=== PATIENT | female | born 1995 | race Caucasian/White ===

== ENCOUNTER 2021-04-09 14:36 | Emergency (ER) | payer OTHER, SELFPAY ==
[2021-04-09 14:45] VITALS: BP 118/77; PULSE 85; RESP 18; TEMP 36.4; O2SAT 100
--- NOTE | 2021-04-09 15:06 | ED.EAR ---
HPI - Ear Problem General Chief complaint: Ear Stated complaint: Ear Pain Time Seen by Provider: 04/09/21 15:12 Source: patient Mode of arrival: ambulatory Limitations: no limitations History of Present Illness HPI Narrative: Jeannine Robertson is a 25 yo female with no PMH who to [facility] for complaints of right ear pain that started almost 2 weeks ago that includes stiffness in her sinuses most developed into bilateral ear discomfort she states that she has had symptoms that have fluctuated but no fever. Related Data Home Medications Medication Instructions Recorded Confirmed PNV cmb#95-ferrous fumarate-FA 1 tablet PO DAILY 07/13/19 07/13/19 [] Allergies Allergy/AdvReac Type Severity Reaction Status Date / Time No Known Allergies Allergy Verified 07/13/19 12:35 Review of Systems Review of Systems: CONSTITUTIONAL: Denies fever, chills, sweats. EYES: Denies visual changes, redness, discharge. ENT: Denies rhinorrhea, has congestion, sore throat, bilateral otalgia. CARDIOVASCULAR: Denies chest pain, palpitations, edema. RESPIRATORY: Denies dyspnea, wheezing, cough GASTROINTESTINAL: Denies abdominal pain, nausea, vomiting, diarrhea. GENITOURINARY: Denies dysuria, hematuria, abnormal discharge SKIN: Denies rash or itching. NEUROLOGIC: Denies numbness, or focal weakness. PSYCHIATRIC: Denies anxiety or depression. PMFSH Past Medical History Medical History Chlamydia Gestational diabetes History of cyst of brain Migraines Smoker Family History Family History Grandparent Diabetes mellitus Hypertension Mother Hypertension Father Diabetes mellitus Son gastroschisis Social History Social History Smoking packs per day: 0.5 Smoking cigarettes per day: 10.0 Years smoked: 8 Smoking pack-years: 4.00 Smoking status: Current every day smoker Tobacco type: cigarettes Second hand tobacco smoke exposure: Yes Substance use: never Spiritual care concerns: No Comments At time of signature, I agree with nursing past medical, surgical, social and family history. There is no relevant family history pertinent to the presenting complaint. Exam Narrative: GENERAL: This is a well-nourished, well-developed patient, in mild distress. HEAD: normocephalic, atraumatic. EYES:. Sclera clear/white. Vision is grossly intact. EARS: External ears normal, auditory canals erythematous and without drainage, TMs normal without perforation. Hearing grossly intact. NOSE: External nose normal without nasal discharge, nares with redness, has rhinorrhea. THROAT: Mucous membranes moist, posterior pharynx mild erythema NECK: Neck supple, non-tender CARDIOVASCULAR: Regular rate and rhythm without murmurs, gallops, or rubs. RESPIRATORY: Clear to auscultation. Breath sounds equal bilaterally. No wheezes, rales, or rhonchi. GASTROINTESTINAL: Abdomen soft, non-tender, SKIN: warm, intact with no suspicious lesions or rash, good texture and turgor. NEURO: awake, alert, and oriented to person, place and time. There were no obvious focal neurologic abnormalities. Steady gait EXTREMITIES: Normal range of motion. BACK: Nontender without deformity Course Course Emergency Course: Patient here with sinuses draining and bilateral ear pain Started on prednisone, polymyxin eardrops, Zyrtec Vital Signs Vital signs: Vital Signs Temperature 97.6 F 04/09/21 14:45 Pulse Rate 85 04/09/21 14:45 Respiratory Rate 18 04/09/21 14:45 Blood Pressure 118/77 04/09/21 14:45 Pulse Oximetry 100 04/09/21 14:45 Temperature 97.6 F 04/09/21 14:45 Pulse Rate 85 04/09/21 14:45 Respiratory Rate 18 04/09/21 14:45 Blood Pressure 118/77 04/09/21 14:45 Pulse Oximetry 100 04/09/21 14:45 Medical Decision Making Differential Diagnosis Differential Diagnosis: Otitis media
== END 2021-04-09 15:30 | disposition home or self-care (01) ==
PROVIDERS: Emergency Provider Nurse Practitioner
DX: H66.003 Acute suppurative otitis media without spontaneous rupture of ear drum, bilateral (principal); F17.210 Nicotine dependence, cigarettes, uncomplicated
CPT/HCPCS: 99213; G0463

== ENCOUNTER 2021-04-12 09:01 | Emergency (ER) | payer OTHER, SELFPAY ==
[2021-04-12 09:17] VITALS: BP 123/70; PULSE 80; RESP 16; TEMP 36.5; O2SAT 99
--- NOTE | 2021-04-12 09:58 | ED.EAR ---
HPI - Ear Problem General Chief complaint: Ear Stated complaint: ear pain/sinus infection Time Seen by Provider: 04/12/21 09:50 Source: patient and RN notes reviewed Mode of arrival: ambulatory Limitations: no limitations History of Present Illness HPI Narrative: Patient presents today complaining of bilateral ear pain with decreased hearing. She was seen at [facility] on 04/09/2021, diagnosed with otitis media, and given a prescription for eardrops. States that her ears are now worse and that last night her right ear pain has significantly worsened. She took some Tylenol this morning which provided little relief. Her sinus congestion has not changed since her visit. She has continued to take the prescribed prednisone as well. MD Complaint: ear pain and decreased hearing Related Data Home Medications Medication Instructions Recorded Confirmed PNV cmb#95-ferrous fumarate-FA 1 tablet PO DAILY 07/13/19 07/13/19 [] Allergies Allergy/AdvReac Type Severity Reaction Status Date / Time No Known Allergies Allergy Verified 07/13/19 12:35 Review of Systems Review of Systems: CONSTITUTIONAL: Denies body aches, fever, chills, or sweats. EYES: Denies visual changes, redness, or discharge. ENT: Denies rhinorrhea, sore throat. + Ear pain, nasal congestion, sinus pressure, decreased hearing CARDIOVASCULAR: Denies chest pain, palpitations, or edema. RESPIRATORY: Denies cough or dyspnea. GASTROINTESTINAL: Denies abdominal pain, nausea, vomiting, or diarrhea. GENITOURINARY: Denies dysuria or hematuria. SKIN: Denies rash, itching, or wounds. MUSCULOSKELETAL: Denies back pain, joint pain, or myalgia. NEUROLOGIC: Denies headache, numbness, tingling, or weakness. PSYCH: Denies depression or anxiety. [facility] Past Medical History Medical History Chlamydia Gestational diabetes History of cyst of brain Migraines Smoker Family History Family History Grandparent Diabetes mellitus Hypertension Mother Hypertension Father Diabetes mellitus Son gastroschisis Social History Social History Smoking packs per day: 0.5 Smoking cigarettes per day: 10.0 Years smoked: 8 Smoking pack-years: 4.00 Smoking status: Current every day smoker Tobacco type: cigarettes Second hand tobacco smoke exposure: Yes Substance use: never Spiritual care concerns: No Comments At time of signature, I have reviewed and agree with nursing past medical, surgical, social and family history unless otherwise noted. Please see nursing chart for further information. There is no relevant family history pertinent to the presenting complaint Exam Narrative: GENERAL: Well-appearing, well-nourished, and in no acute distress. HEAD: Normocephalic, atraumatic. EYES: EOMI. No redness or drainage. Conjunctivae normal. ENT: Mucous membranes pink and moist. Nares moderately congested. No rhinorrhea. Bilateral TMs are erythematous and very dull. No ruptures noted. Throat normal. Uvula midline. NECK: Normal AROM. Supple. No lymphadenopathy. CHEST: No respiratory distress. Clear to auscultation. HEART: Regular rate and rhythm. No murmur appreciated. Normal peripheral pulses. EXTREMITIES: Normal range of motion. No edema. SKIN: Warm, dry, no rash. Capillary refill normal. Normal skin turgor. NEURO: No focal deficits. Alert and oriented x3. Gait steady. PSYCH: Normal affect. No signs of depression or anxiety. Course Vital Signs Vital signs: Vital Signs Temperature 97.7 F 04/12/21 09:17 Pulse Rate 80 04/12/21 09:17 Respiratory Rate 16 04/12/21 09:17 Blood Pressure 123/70 04/12/21 09:17 Pulse Oximetry 99 04/12/21 09:17 Temperature 97.7 F 04/12/21 09:17 Pulse Rate 80 04/12/21 09:17 Respiratory Rate 16 04/12/21 09:17 Blood Pressure 123/70 04/12/21 09:17 Pulse Oximetr
== END 2021-04-12 10:23 | disposition home or self-care (01) ==
PROVIDERS: Emergency Provider Nurse Practitioner
DX: H66.93 Otitis media, unspecified, bilateral (principal); J01.90 Acute sinusitis, unspecified; F17.219 Nicotine dependence, cigarettes, with unspecified nicotine-induced disorders
CPT/HCPCS: 99213; G0463

== ENCOUNTER 2021-06-19 09:59 | Emergency (ER) | payer OTHER, SELFPAY ==
[2021-06-19 10:11] VITALS: BP 129/96; PULSE 105; RESP 18; TEMP 37.3; O2SAT 100
--- NOTE | 2021-06-19 10:40 | ED.GENADULT ---
HPI - General Adult General Chief complaint: Upper Respiratory Infection Stated complaint: cough/sinus issues/fever/body aches Source: patient Mode of arrival: ambulatory Limitations: no limitations History of Present Illness HPI narrative: Patient is a 26-year-old female who presents to the [facility] via [facility] for evaluation flulike symptoms that began 4 days ago. Additionally, she reports lightheadedness, myalgias, vomiting, fever, nasal congestion, and wet cough. She states her cough is nonproductive. Maximum temperature was 101.0. She reports one episode of vomiting undigested food. Sudafed, Tylenol cold and flu, and nasal spray has provided moderate relief of symptoms. Denies aggravating factors. Patient was exposed to influenza a by her brother prompting today's visit. Patient denies being vaccinated against Covid or influenza. Related Data Allergies Allergy/AdvReac Type Severity Reaction Status Date / Time No Known Allergies Allergy Verified 06/19/21 10:26 Review of Systems Review of Systems: Pertinent negatives: sweats, chills, change in appetite, fatigue, skin color changes, headache, nasal discharge, LOC, near syncope, lymphadenopathy, sinus problems, ear pain/drainage, chest pain, heart murmurs, heart palpitations, sore throat, shortness of breath, wheezing, cyanosis, hemoptysis, hoarseness, orthopnea, pleuritic pain, abdominal pain, nausea, diarrhea. PMFSH Past Medical History Medical History Chlamydia Gestational diabetes History of cyst of brain Migraines Smoker Family History Family History Grandparent Diabetes mellitus Hypertension Mother Hypertension Father Diabetes mellitus Son gastroschisis Social History Social History Smoking packs per day: 0.5 Smoking cigarettes per day: 10.0 Years smoked: 8 Smoking pack-years: 4.00 Smoking status: Current every day smoker Tobacco type: cigarettes Second hand tobacco smoke exposure: Yes Substance use: never Spiritual care concerns: No Comments I have reviewed and agree with the patient's past medical, surgical, social, and family hx as documented by the RN. There is no relevant family history pertinent to the presenting complaint. Exam Narrative: GENERAL: Well-appearing, well-nourished, and in no acute distress. HEAD: Normocephalic, atraumatic. No sinus tenderness or facial swelling appreciated. EYES: PERRLA and EOMI. No evidence of erythema, swelling, or drainage. ENT: Bilateral external ears and ear canals normal. Bilateral TMs are normal.No TM perforation. Nares clear, no rhinorrhea or epistaxis. Bilateral turbinates without erythema/ swelling. Mucous membranes moist and pink. Uvula is midline without erythema and swelling. No evidence of petechial rash, cobblestoning, lesions, ulcers, erythema, swelling, exudates, peritonsillar abscess, tenting, or drooling. Breath odor and voice normal. NECK: Supple. No Lymphadenopathy or nuchal rigidity appreciated. CHEST: Bilateral lung miller are clear to auscultation. No respiratory distress. No evidence of cough or pleuritic cp upon examination. HEART: Tachycardia with a rate of 105. Regular rhythm. No murmur, gallop, or rub heard. EXTREMITIES: Normal range of motion. No edema. SKIN: Warm, dry, no rash. NEURO: No focal deficits. Alert and oriented x3. Course Course Emergency Course: The patient/guardian displays adequate decision making capability and despite a detailed discussion of alternatives, benefits, risks, and consequences refuses rapid strep test Vital Signs Vital signs: Vital Signs Temperature 99.2 F 06/19/21 10:11 Pulse Rate 105 H 06/19/21 10:11 Respiratory Rate 18 06/19/21 10:11 Blood Pressure 129/96 H 06/19/21 10:11 Pulse Oximetry 100 06/19/21 10:11 Temperature 99.2 F 06/19/21 10:11 Pulse Ra
== END 2021-06-19 11:07 | disposition home or self-care (01) ==
PROVIDERS: Emergency Provider Nurse Practitioner Family
DX: J06.9 Acute upper respiratory infection, unspecified (principal); Z20.822 Contact with and (suspected) exposure to COVID-19; F17.210 Nicotine dependence, cigarettes, uncomplicated
CPT/HCPCS: 87426; 87804; 99213; C9803; G0463

== ENCOUNTER 2021-06-24 15:35 | Emergency (ER) | payer OTHER, SELFPAY ==
[2021-06-24 15:43] VITALS: BP 141/76; PULSE 92; RESP 16; TEMP 36.3; O2SAT 99
--- NOTE | 2021-06-24 15:57 | ED.EAR ---
HPI - Ear Problem General Chief complaint: Ear Stated complaint: Ear pain. Time Seen by Provider: 06/24/21 15:50 Source: patient and RN notes reviewed Mode of arrival: ambulatory Limitations: no limitations History of Present Illness HPI Narrative: Jeannine is a 26-year-old female patient ambulated into the [facility]. Patient states she has decreased hearing and increased nasal congestion for the last 2 weeks. Patient was here seen here on 06/20/2021 was prescribed Sudafed, Flonase, and Benadryl. Patient states she has been taking it without any relief. Patient states the pain in her right ear is getting worse. Patient also states she has decreased taste and smell. Patient had negative Covid on Friday. Patient states she was using her son's moxifloxacin drops Related Data Allergies Allergy/AdvReac Type Severity Reaction Status Date / Time No Known Allergies Allergy Verified 06/19/21 10:26 Review of Systems Review of Systems: CONSTITUTIONAL: Denies body aches, fever, chills, or sweats. EYES: Denies visual changes, redness, or discharge. ENT: Denies rhinorrhea,+ congestion,denies sore throat, +otalgia. CARDIOVASCULAR: Denies chest pain, palpitations, or edema. RESPIRATORY: + cough denies dyspnea. GASTROINTESTINAL: Denies abdominal pain, nausea, vomiting, or diarrhea. GENITOURINARY: Denies dysuria or hematuria. SKIN: Denies rash, itching, or wounds. MUSCULOSKELETAL: Denies back pain, joint pain, or myalgia. NEUROLOGIC: Denies headache, numbness, tingling, or weakness. PSYCH: Denies depression or anxiety. All systems reviewed & are unremarkable except as noted in HPI and below PMFSH Past Medical History Medical History Chlamydia Gestational diabetes History of cyst of brain Migraines Smoker Family History Family History Grandparent Diabetes mellitus Hypertension Mother Hypertension Father Diabetes mellitus Son gastroschisis Social History Social History Smoking packs per day: 0.5 Smoking cigarettes per day: 10.0 Years smoked: 8 Smoking pack-years: 4.00 Smoking status: Current every day smoker Tobacco type: cigarettes Second hand tobacco smoke exposure: Yes Substance use: never Spiritual care concerns: No Comments At time of signature, I have reviewed and agree with nursing past medical, surgical, social and family history unless otherwise noted. Please see nursing chart for further information. There is no relevant family history pertinent to the presenting complaint Exam Narrative: GENERAL: Well-appearing, well-nourished, and in no acute distress. HEAD: Normocephalic, atraumatic. EYES: EOMI. No redness or drainage. Conjunctivae normal. ENT: Mucous membranes pink and moist. Nasal membranes are erythematous with clear rhinorrhea. Right tympanic membrane is erythematous with an moderately bulging . Posterior pharynx is erythemic with mild edema and no exudate. NECK: Normal AROM. Supple. Right anterior cervical lymphadenopathy. CHEST: No respiratory distress. Clear to auscultation. MUSCULOSKELETAL: No bony tenderness. EXTREMITIES: Normal range of motion. No edema. SKIN: Warm, dry, no rash. Capillary refill normal. Normal skin turgor. NEURO: No focal deficits. Alert and oriented x3. Gait steady. PSYCH: Normal affect. No signs of depression or anxiety. Course Vital Signs Vital signs: Vital Signs Temperature 36.3 C L 06/24/21 15:43 Pulse Rate 92 06/24/21 15:43 Respiratory Rate 16 06/24/21 15:43 Blood Pressure 141/76 H 06/24/21 15:43 Pulse Oximetry 99 06/24/21 15:43 Temperature 36.3 C L 06/24/21 15:43 Pulse Rate 92 06/24/21 15:43 Respiratory Rate 16 06/24/21 15:43 Blood Pressure 141/76 H 06/24/21 15:43 Pulse Oximetry 99 06/24/21 15:43 Reviewed. Pt has been instructed to follow up with her P
== END 2021-06-24 16:05 | disposition home or self-care (01) ==
PROVIDERS: Emergency Provider Nurse Practitioner Family
DX: H66.001 Acute suppurative otitis media without spontaneous rupture of ear drum, right ear (principal); F17.210 Nicotine dependence, cigarettes, uncomplicated
CPT/HCPCS: 99213; G0463

== ENCOUNTER 2022-05-24 19:56 | Emergency (ER) | payer OTHER, SELFPAY ==
--- NOTE | ~2022-05-24 | US_ITS ---
US OB <=14 wk fetus w TV DATE: 05/25/2022 04:17 INDICATION: Pelvic pain, vaginal spotting TECHNIQUE: Real-time imaging and Doppler analysis COMPARISON: None FINDINGS: The uterus measures 8.3 cm height, 4.9 cm AP and 6.2 cm transverse dimension. An intrauteri ne gestational sac is seen, with sac size consistent with 5 weeks 4 days estimated gestational age. H owever, the sac appears somewhat flattened in shape, with irregular low intensity internal echoes, wi thout identifiable pole.. Right ovary measures 4.1 x 2.5 x 2.3 cm. Left ovary measures 4.4 x 2.5 x 3 cm, with a 1.0 x 1.5 cm left ovarian cyst. There is vascular flow to both ovaries. IMPRESSION: Somewhat flattened intrauterine gestational sac with some faint ill-defined internal echo es, without identifiable pole. Sac size consistent with 5 weeks 4 days. This may not be a viabl e gestational sac. Recommend correlation with beta-hCG levels and follow-up short-term follow-up ultr asound to assess gestational viability. Reviewed, dictated and finalized at [facility] Reviewed, dictated and finalized at [facility] A DIRECTOR IMPRESSION: Somewhat flattened intrauterine gestational sac with some faint ill -defined internal echoes, without identifiable pole. Sac size consistent with 5 weeks 4 days. This may not be a viable gestational sac. Recommend correl ation with beta-hCG levels and follow-up short-term follow-up ultrasound to ass ess gestational viability.
[2022-05-24 20:01] VITALS: BP 134/83; PULSE 112; RESP 16; TEMP 36.6; O2SAT 100
[2022-05-24 20:59] LABS: Influenza A QL RT-PCR Negative (Negative); Influenza B QL RT-PCR Negative (Negative); RSV RNA, RT-PCR Negative (Negative); SARS-CoV-2 RNA PCR Negative
[2022-05-24 23:08] LABS: Strep Group A RT-PCR Negative (Negative)
--- NOTE | 2022-05-25 01:50 | ED.PREGNANCY ---
HPI - General Chief complaint: Fever <KARSON Hurd Last Filed: 05/25/22 03:48> Stated complaint: sore throat, home preg test positive <KARSON Hurd Last Filed: 05/25/22 03:48> Time Seen by Provider: 05/25/22 01:39 <KARSON Hurd Last Filed: 05/25/22 03:48> Source: patient <KARSON Hurd Last Filed: 05/25/22 03:48> Mode of arrival: ambulatory <KARSON Hurd Last Filed: 05/25/22 03:48> Limitations: no limitations <KARSON Hurd Last Filed: 05/25/22 03:48> History of Present Illness HPI Narrative: This is a 26 year old , about 6 weeks by LMP, that presents to the ER for pelvic cramping. Reports over the last couple of days she has had cold symptoms. Reports subjective fever, sore throat, cough, congestion, myalgias. Reports today she has noted some pelvic cramping. She has not seen her OB yet this . She has an appointment scheduled in May. Reports she had some pink discharge on the tissue when she wiped. Denies vomiting, or dysuria. <Minoo Reed PA-C - Last Filed: 05/25/22 03:48> Related Data Home medications: Home Medications Medication Instructions Recorded Confirmed loratadine 10 mg tablet (Claritin) 10 mg PO DAILY 11/07/21 <KARSON Hurd Last Filed: 05/25/22 03:48> Allergies/Adverse reactions: Allergies Allergy/AdvReac Type Severity Reaction Status Date / Time No Known Allergies Allergy Verified 05/25/22 01:40 <KARSON Hurd Last Filed: 05/25/22 03:48> Review of Systems Review of Systems: CONSTITUTIONAL: Reports fever ENT: Reports rhinorrhea, congestion, sore throat, and otalgia. RESPIRATORY: Reports cough. Denies dyspnea. GASTROINTESTINAL: Reports pelvic cramping. Denies nausea, vomiting GENITOURINARY: Denies dysuria MUSCULOSKELETAL: Reports myalgia. PSYCHIATRIC: Reports anxiety <Minoo Reed PA-C - Last Filed: 05/25/22 03:48> All systems reviewed & are unremarkable except as noted in HPI and below <Minoo Reed PA-C - Last Filed: 05/25/22 03:48> PMFSH Past Medical History Medical History: Medical History Chlamydia Gestational diabetes History of cyst of brain History of cyst of brain Migraines Smoker <Minoo Reed PA-C - Last Filed: 05/25/22 03:48> Surgical History Surgical History: Surgical History History of brain surgery (~2003) Brain surgery to removal cyst History of tonsillectomy <Minoo Reed PA-C - Last Filed: 05/25/22 03:48> Family History Family History: Family History Grandparent Diabetes mellitus Hypertension Mother Hypertension Father Diabetes mellitus Son gastroschisis <Minoo Reed PA-C - Last Filed: 05/25/22 03:48> Social History Social History: Social History Social History: Patient drinks 3 cups of coffee daily. Smoking packs per day: 0.5 Smoking cigarettes per day: 10.0 Years smoked: 10 Smoking pack-years: 5.00 Smoking status: Current every day smoker Tobacco type: cigarettes Second hand tobacco smoke exposure: Yes Substance use: never Spiritual care concerns: No <KARSON Hurd Last Filed: 05/25/22 03:48> Exam Narrative: GENERAL: Well-appearing, well-nourished, and in no acute distress. HEAD: Normocephalic, atraumatic. EYES: EOMI. ENT: Nares clear, no rhinorrhea or epistaxis. Mucous membranes moist. Oropharynx without tonsillar hypertrophy exudate or other lesions. Bilateral TMs with mild redness, but non bulging, normal light reflex NECK: Supple. No adenopathy or masses. CHEST: Clear to auscultation. No respiratory distress. No wheezes rales or rhonchi HEART: Regular rate and rhythm. No murmur heard. Normal peripheral pulses.
[2022-05-25 01:53] LABS: Appearance Urine Clear (Clear); Bilirubin Urine Negative (Negative); Blood Urine Trace-intact (Negative); Color Urine Yellow (Yellow); Glucose Urine UA Negative (Negative); Ketones Urine 1+ mg/dL (Negative); Leukocyte Esterase Ur Negative LEU/UL (Negative); Nitrate Urine Negative (Negative); Protein Urine Negative (Negative); Specific Grav Ur >= 1.030 (1.001-1.035); Urobilinogen Urine 0.2 mg/dL (<2.0)
[2022-05-25 01:56] VITALS: BP 120/90; PULSE 108; RESP 16; TEMP 36.9; O2SAT 99
[2022-05-25 01:57] LABS: Bacteria Urine Trace /hpf; Mucus Urine Rare /lpf; Squamous Epithelial Cell Urine Many /hpf (Few); WBC Urine 0-3 /hpf
[2022-05-25] MEDS: SODIUM CHLORIDE 0.9% IV 1,000 ML 999 ML IV CONT (02:05)
[2022-05-25 02:13] LABS: Basophils Absolute Auto 0.1 K/mm3 (0.0-0.1); Basophils Percent Auto 0.5 % (0.2-1.2); Eosinophils Percent Auto 0.2 % (0-4.4); Hematocrit 37.2 % (37.0-47.0); Hemoglobin 12.7 g/dL (12.0-15.0); Immature Granulocyte Absolute 0.04 K/mm3 (0.00-0.031); Immature Granulocyte Percent A 0.3 % (0-0.5); Lymphocytes Absolute Auto 1.51 K/mm3 (0.9-3.2); Lymphocytes Percent Auto 11.8 % (18.3-44.2); Mean Corpuscular HGB Conc 34.1 g/dl (32-36); Mean Corpuscular Hemoglobin 31.1 pg (26-34); Mean Platelet Volume 9.8 fl (7.4-10.4); Monocytes Absolute Auto 0.9 K/mm3 (0.1-0.6); Monocytes Percent Auto 6.8 % (2.6-8.5); Neutrophils Absolute Auto 10.3 K/mm3 (1.3-6.7); Neutrophils Percent Auto 80.4 % (45.5-73.1); Platelet Count Result 287 k/mm3 (150-375); Red Blood Count 4.09 M/mm3 (4.2-5.4); Red Cell Distribution Width 12.2 % (11.5-14.5); White Blood Count 12.8 K/mm3 (4.5-10.0)
[2022-05-25 02:32] VITALS: PULSE 96; RESP 14; O2SAT 100
[2022-05-25 02:33] LABS: Anion Gap 9 mmol/L (8-16); Blood Urea Nitrogen 8 mg/dL (7-17); Calcium 9.1 mg/dL (8.4-10.2); Carbon Dioxide 24 mmol/L (22-30); Chloride 102 mmol/L (98-107); Estimated CRCL calculation 146 ml/min; Estimated Glomerular Filt Rate > 60; Glucose 153 mg/dL (65-110); Potassium 3.9 mmol/L (3.4-5.0); Sodium 135 mmol/L (137-145)
[2022-05-25 02:48] LABS: Add Urine Microscopic? YES
--- NOTE | 2022-05-25 08:02 | PC.NURSE ---
Dimensional Integration Engineer discharged papers reviewed with patient, patient denies any questions or comments. Patient alert and ambulatory to ED exit.
== END 2022-05-25 08:03 | disposition home or self-care (01) ==
PROVIDERS: Emergency Medicine; Emergency Provider Physician Assistant; PCP Emergency Medicine
DX: O20.0 Threatened abortion (principal); O99.511 Diseases of the respiratory system complicating pregnancy, first trimester; J06.9 Acute upper respiratory infection, unspecified; Z20.822 Contact with and (suspected) exposure to COVID-19; Z86.32 Personal history of gestational diabetes; Z3A.01 Less than 8 weeks gestation of pregnancy
CPT/HCPCS: 36415; 76801; 76817; 80048; 81001; 81025; 84702; 85025; 85461; 86850; 86900; 86901; 87637; 87651; 96361; 96365; 99284; J0131; J7030

== ENCOUNTER 2022-05-27 09:27 | Outpatient (CLI) | payer OTHER, SELFPAY | END 2022-05-27 09:28 | disposition home or self-care (01) | PROVIDERS: PCP Emergency Medicine; Visit Provider Obstetrics & Gynecology | DX: O20.0 Threatened abortion (principal); Z3A.00 Weeks of gestation of pregnancy not specified | CPT/HCPCS: 36415; 84702 ==

== ENCOUNTER 2023-11-28 15:12 | Emergency (ER) | payer OTHER, SELFPAY ==
[2023-11-28 15:24] VITALS: BP 129/79; PULSE 104; RESP 16; TEMP 36.2; O2SAT 99
--- NOTE | 2023-11-28 15:29 | ED.URI ---
HPI - URI/Sore Throat General Chief Complaint: Upper Respiratory Infection Stated Complaint: congested,ears hurt and muffled Time Seen by Provider: 11/28/23 15:24 Source: patient Mode of arrival: ambulatory Limitations: no limitations History of Present Illness HPI Narrative: Patient is a 28-year-old female who presents with 2 weeks of congestion bilateral ear pain. Patient also reports ears feel muffled. Denies any fever, chills, cough, sore throat, nausea, vomiting, diarrhea. Patient has history of ear infections. Patient takes daily Claritin and Flonase Related Data Home Medications Medication Instructions Recorded Confirmed loratadine 10 mg tablet (Claritin) 10 mg PO DAILY 11/07/21 06/02/23 bupropion HCl 150 mg 24 hr tablet, 150 mg PO DAILY 06/02/23 06/02/23 extended release (Wellbutrin XL) escitalopram oxalate 10 mg tablet 10 mg PO DAILY 06/02/23 06/02/23 (Lexapro) vit 168-iron 27 mg-folic 1 cap PO DAILY 06/02/23 06/02/23 acid 800 mcg-omega3 235 mg capsule (One-A-Day -1) Allergies Allergy/AdvReac Type Severity Reaction Status Date / Time No Known Allergies Allergy Verified 06/02/23 15:57 Review of Systems Review of Systems: All systems reviewed & are unremarkable except as noted in HPI and below Constitutional: Constitutional: Denies body ache(s), Denies chills, Denies fatigue, Denies fever(s), Denies headache(s), Denies malaise and Denies weakness Eyes: Eyes: Denies blurry vision, Denies itchy eyes and Denies loss of vision ENT: Reports otalgia, Denies headache(s), Reports nasal congestion, Denies sinus pain and Denies sore throat Cardiovascular: Cardiovascular: Denies chest pain, Denies irregular heart rhythm and Denies dyspnea Respiratory: Respiratory: Denies cough and Denies dyspnea Gastrointestinal: Gastrointestinal: Denies abdominal pain, Denies diarrhea, Denies nausea and Denies vomiting Musculoskeletal: Musculoskeletal: Denies back pain, Denies myalgias and Denies arthralgias Integumentary/Breasts: Skin/Breast: Denies pruritus and Denies rash Neurologic: Denies headache(s), Denies loss of vision and Denies weakness Psychiatric: Psychiatric: Reports no additional psychiatric complaints Endocrine: Endocrine: Denies fatigue Allergic/Immunologic: Allergic/Immunologic: Denies itchy eyes PMFSH Past Medical History Medical History Chlamydia Gestational diabetes History of cyst of brain History of cyst of brain Migraines Smoker Surgical History Surgical History History of brain surgery (~2003) Brain surgery to removal cyst History of tonsillectomy Family History Family History Grandparent Diabetes mellitus Hypertension Mother Hypertension Father Diabetes mellitus Son gastroschisis Social History Social History Social History: Patient drinks 3 cups of coffee daily. Smoking packs per day: 0.5 Smoking cigarettes per day: 10.0 Years smoked: 10 Smoking pack-years: 5.00 Smoking status: Former smoker Tobacco type: cigarettes Second hand tobacco smoke exposure: Yes Substance use: never Lack of Transportation: No Lack of Food: Never True Current Housing: I Have Housing Concerned About Future Housing: No Difficulty Paying Gas/Electric Bills: No Difficulty Paying for Meds: No Currently Unemployed: No Education: High School Diploma/GED Difficulty w/ Childcare or Family Care: No Spiritual care concerns: No Comments At time of signature, agree with nursing past medical, surgical, social and family history. There is no relevant family history pertinent to the presenting complaint. Exam Const: General: cooperative, healthy appearing, comfortable, no acute distress and well nourished Nutritional Appearance: well nourished [facility]
== END 2023-11-28 16:00 | disposition home or self-care (01) ==
PROVIDERS: Emergency Provider Nurse Practitioner Family; PCP Emergency Medicine
DX: H66.003 Acute suppurative otitis media without spontaneous rupture of ear drum, bilateral (principal); Z87.891 Personal history of nicotine dependence
CPT/HCPCS: 99213; G0463

== ENCOUNTER 2024-09-02 12:02 | Emergency (ER) | payer OTHER, SELFPAY ==
[2024-09-02 12:11] VITALS: BP 118/63; PULSE 94; RESP 16; TEMP 36.4; O2SAT 98
[2024-09-02 12:24] VITALS: PULSE 94; RESP 16; O2SAT 98
--- NOTE | 2024-09-02 12:36 | ED_ITS ---
HPI - URI/Sore Throat General Chief Complaint: Upper Respiratory Infection Stated Complaint: deep cough, hurts, heavy chest Time Seen by Provider: 09/02/24 12:22 Source: patient, RN notes reviewed and old records reviewed Mode of arrival: ambulatory Limitations: no limitations History of Present Illness HPI Narrative: 29 year old female who presents to [facility] care with complaints of sinus congestion and harsh cough for one week duration Patient reports that PCP sent RX out for Tessalon Perles on the 3rd but no improvement in cough. Patient reports that she has not had any body aches or any known fevers. Patient reports that her child did have influenza MD elicited complaint: cough, rhinorrhea and nasal congestion Onset (ago): week(s) (1) Severity: moderate Able to tolerate fluids by mouth: Yes Treatments prior to arrival: other (Tessalon Perles, Mucinex) Related Data Allergies Allergy/AdvReac Type Severity Reaction Status Date / Time No Known Allergies Allergy Verified 09/02/24 12:12 Review of Systems Review of Systems: CONSTITUTIONAL: Reports malaise,no chills, sweats, or fever. EYES: Denies visual changes, redness, or discharge. ENT: Reports rhinorrhea, congestion, no sinus pain, otalgia and no sore throat. CARDIOVASCULAR: Denies chest pain, palpitations, or edema. RESPIRATORY: Reports cough.? Denies dyspnea.chest sore from coughing GASTROINTESTINAL: Denies abdominal pain, nausea, vomiting, diarrhea SKIN: Denies rash or itching. MUSCULOSKELETAL: Denies myalgia. NEUROLOGIC: Denies headache. All systems reviewed & are unremarkable except as noted in HPI and below PMFSH Past Medical History Medical History Visual disturbance Otitis externa Sinusitis Ear pressure Sinus congestion Ruptured ear drum History of cyst of brain Earache Smoker Gestational diabetes History of cyst of brain Chlamydia Migraines Surgical History Surgical History History of brain surgery (~2003) Brain surgery to removal cyst History of tonsillectomy Family History Family History Grandparent Diabetes mellitus Hypertension Mother Hypertension Father Diabetes mellitus Son gastroschisis Social History Social History Social History: Patient drinks 3 cups of coffee daily. Smoking packs per day: 0.5 Smoking cigarettes per day: 10.0 Years smoked: 10 Smoking pack-years: 5.00 Smoking status: Current every day smoker Tobacco type: cigarettes Second hand tobacco smoke exposure: Yes Alcohol intake: never Substance use: never Substance use type: does not use Do You Feel Safe in your Home?: Yes Lack of Transportation: No Lack of Food: Never True Current Housing: I Have Housing Concerned About Future Housing: No Difficulty Paying Gas/Electric Bills: No Difficulty Paying for Meds: No Currently Unemployed: No Education: Trade/Vocational Certificate Difficulty w/ Childcare or Family Care: No Spiritual care concerns: No Comments At time of signature, agree with nursing past medical, surgical, social and family history. There is no relevant family history pertinent to the presenting complaint Exam Narrative: GENERAL: Well-appearing, well-nourished, and in no acute distress. HEAD: Normocephalic EYES: PERRLA, conjunctivae clear ENT: Nares clear, turbinates edematous and erythematous, clear discharge. Mucous membranes moist. Right TM red and bulging, Left TM pearly lópez with dull light reflex bilaterally; no tragal tenderness. Oropharynx erythematous without lesions. Tonsils not present and throat without exudate, no drooling, no hoarseness, no trismus, uvula midline.post nasal drainage NECK: Supple. No lymphadenopathy CHEST: Clear to auscultation, breath sounds equal. No wheezing, rhonchi, rales, or stridor. No respiratory distress, speaks in full sentences.harsh cough, SAO2 98% HEART: Regular rate and rhythm. No murmur heard. SKIN: Warm, dry, no rash. NEURO: Alert and oriented x3. PSYCH: Normal mood and affect Course Course Emergency Course: Patient is aware of diagnosis, understands and agrees to treatment plan.? Anticipatory guidance given.? Patient agrees to follow-up as directed and is aware of reasons to seek care at the emergency department. Portions of this record may have been created with voice recognition software Level of Care: Express Care Visit Vital Signs Vital signs: Vital Signs Temperature 36.4 C L 09/02/24 12:11 Pulse Rate 94 09/02/24 12:11 Respiratory Rate 16 09/02/24 12:11 Blood Pressure 118/63 09/02/24 12:11 Pulse Oximetry 98 09/02/24 12:11 Oxygen Delivery Room Air 09/02/24 12:11 Temperature 36.4 C L 09/02/24 12:11 Pulse Rate 94 09/02/24 12:24 Respiratory Rate 16 09/02/24 12:24 Blood Pressure 118/63 09/02/24 12:11 Pulse Oximetry 98 09/02/24 12:24 Oxygen Delivery Room Air 09/02/24 12:11 Reviewed MDM - URI/Sore Throat MDM Narrative Medical decision making narrative: Differential diagnosis considered: Jewell virus, strep pharyngitis, allergic rhinitis, upper respiratory tract infection, sinusitis, rhinosinusitis, nasopharyngitis. viral pharyngitis, otitis media, otitis externa, pneumonia, bronchitis, viral cough syndrome, viral syndrome, and influenza.? Exam findings show no acute concerns or changes; patient is non-toxic appearing and is in no distress.? Patient is appropriate for outpatient treatment and follow-up. Differential Diagnosis Differential diagnosis: Likely upper respiratory infection, otitis media, sinusi tis, viral infection and other (acute cough) Medical Records Attestation: I reviewed the patient's medical records. Lab Data Attestation: I reviewed the patient's lab results. Critical Care Time Critical Care Time Critical Care Time: No Discharge Plan Discharge Clinical Impression: Acute cough Otitis media Qualifiers: Otitis media type: serous Chronicity: acute Laterality: right Recurrence: not specified as recurrent Qualified Code(s): H65.01 - Acute serous otitis media, right ear Patient Disposition: Home, Self-Care Condition: Stable Instructions: Antibiotic Form, Ear Infection (GEN), Acute Cough (ED) Additional Instructions: Increase fluids especially juices and water [id number] cough and cold medicine of your choice for your symptoms Zyrtec Claritin or Kimberly daily for sinus congestion and drainage Tylenol or ibuprofen for fever pain Recommend Delsym or Robitussin cough syrup Steroids as directed--take with food heat to the face 20-30 minutes 4-6 times a day for pain Salt water gargles, throat lozenges or throat sprays as desired Antibiotic as directed--finished the medication If your symptoms persist, change or worsen significantly before you can contact your personal physician then please, without delay, go to the emergency department for further evaluation. Follow-up with PCP in 7-10 days or sooner if needed Patient Language: Estonian Prescriptions: New prednisone 20 mg tablet 40 mg PO DAILY 5 Days Qty: 10 0RF Rx Instructions: Taken a.m. with food amoxicillin-pot clavulanate 875-125 mg tablet 1 tablet PO Q12H 10 Days Qty: 20 0RF No Action benzonatate 100 mg capsule 100 mg PO TID Qty: 21 0RF Follow-up/Referrals: Dale Hare MD [Primary Care Provider] - Time of Disposition: 12:52 Quality [place] Coma Scale Eyes: Open Verbal: Oriented and Alert Motor: Follows Commands Devyn Coma Total Score: 15
== END 2024-09-02 13:00 | disposition home or self-care (01) ==
PROVIDERS: Emergency Provider Registered Nurse; PCP Emergency Medicine
DX: R05.1 Acute cough (principal); H65.01 Acute serous otitis media, right ear; F17.210 Nicotine dependence, cigarettes, uncomplicated
CPT/HCPCS: 99213; G0463